=== PATIENT | male | born 2000 | race Caucasian/White ===

== ENCOUNTER 2021-11-05 10:23 | Emergency (ER) | payer SELFPAY ==
[~2021-11-05] VITALS: Ht 182.9 cm; Wt 102.3 kg
[2021-11-05 10:26] VITALS: BP 136/67
--- NOTE | 2021-11-05 14:12 | NUR ---
NOT IN [facility]BY
== END 2021-11-05 14:17 | disposition left against medical advice (07) ==
LOC: ER 10:23
DX: R05.9 Cough, unspecified (principal); Z53.21 Procedure and treatment not carried out due to patient leaving prior to being seen by health care provider